=== PATIENT | female | born 1945 | race Caucasian/White ===

== ENCOUNTER 2016-06-18 09:52 | Outpatient (CLI) | payer MEDICARE, OTHER ==
[2016-06-19 13:11] LABS: Hemoglobin 10.3 g/dL (12.0-16.0)
== END 2016-06-18 09:53 | disposition home or self-care (01) ==
LOC: MADLAB 09:52
PROVIDERS: ATTEND Nurse Practitioner Family
DX: N18.3 Chronic kidney disease, stage 3 (moderate) (principal); D63.1 Anemia in chronic kidney disease
CPT/HCPCS: 36415; 85014; 85018